=== PATIENT | female | born 1990 | race Caucasian/White ===

== ENCOUNTER 2022-06-05 09:45 | Outpatient (RCR) | payer OTHER, SELFPAY | END 2022-09-06 23:59 | disposition home or self-care (01) | PROVIDERS: Visit Provider Orthopaedic Surgery Sports Medicine | DX: M75.102 Unspecified rotator cuff tear or rupture of left shoulder, not specified as traumatic (principal); Z51.89 Encounter for other specified aftercare | CPT/HCPCS: 97032; 97140; 97161 ==

== ENCOUNTER 2023-01-08 14:00 | Outpatient (RCR) | payer OTHER, SELFPAY | END 2023-03-19 10:35 | disposition home or self-care (01) | PROVIDERS: PCP Physician Assistant Medical; Visit Provider Orthopaedic Surgery | DX: M89.8X1 Other specified disorders of bone, shoulder (principal); R29.898 Other symptoms and signs involving the musculoskeletal system; Z51.89 Encounter for other specified aftercare | CPT/HCPCS: 97110; 97162 ==

== ENCOUNTER 2023-02-26 13:25 | Outpatient (CLI) | payer OTHER, SELFPAY | END 2023-02-26 13:26 | disposition home or self-care (01) | PROVIDERS: PCP Physician Assistant Medical; Visit Provider Family Medicine | DX: R53.83 Other fatigue (principal); Z13.29 Encounter for screening for other suspected endocrine disorder | CPT/HCPCS: 80053; 82533; 84443 ==

== ENCOUNTER 2023-04-22 14:31 | Outpatient (CLI) | payer OTHER, SELFPAY | END 2023-04-22 14:32 | disposition home or self-care (01) | LOC: LKVREF 14:34 | PROVIDERS: PCP Physician Assistant Medical; Visit Provider Family Medicine | DX: Z01.818 Encounter for other preprocedural examination (principal) | CPT/HCPCS: 80048 ==

== ENCOUNTER 2024-02-13 08:17 | Outpatient (CLI) | payer OTHER, SELFPAY | END 2024-02-13 08:18 | disposition home or self-care (01) | LOC: NFLDREF 02-14 06:30 | PROVIDERS: PCP Family Medicine; Referring Provider Family Medicine; Visit Provider Family Medicine | DX: R53.83 Other fatigue (principal); F41.9 Anxiety disorder, unspecified; G90.A Postural orthostatic tachycardia syndrome [POTS] | CPT/HCPCS: 82306; 82533 ==